=== PATIENT | female | born 1935 ===

== ENCOUNTER 2016-05-18 18:20 | Emergency (ER) | payer OTHER ==
[2016-05-18] MEDS ORDERED: ONDANSETRON 4 MG ODT TAB ONE (18:39)
[2016-05-18] MEDS ORDERED: OXYCODONE/ACETAMINOPHEN 5/325 MG TABLET ONE (18:39)
[2016-05-18] MEDS ORDERED: FENTANYL 100 MCG/2 ML VIAL ONE (19:36)
--- NOTE | 2016-05-18 19:44 | RAD ---
SHOULDER-LEFT 2 OR MORE VIEWS COMPARISON: None HISTORY: Ground-level fall. Left shoulder pain. Initial encounter. FINDINGS: Views: Left shoulder internal rotation, external rotation, and scapular Y Bones: Comminuted angulated fracture proximal diaphysis of the left humerus. Internal rotation of the proximal fragment in relationship to the shoulder joint. 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 Soft tissues: There is a pacemaker generator in the left upper chest wall. IMPRESSION: Comminuted angulated fracture of the proximal diaphysis of the left humerus.
--- NOTE | 2016-05-18 19:45 | RAD ---
HUMERUS LEFT COMPARISON: Left shoulder 3 views, 05/18/2016 HISTORY: Fall with left arm pain. FINDINGS: Views: Left humerus AP and internal rotation. Bones: Comminuted posteriorly healing fracture of the proximal diaphysis of the left humerus. Joints: Degenerative changes at the shoulder and the elbow. Soft tissues: Deformity secondary to fracture. IMPRESSION: 1. Comminuted angulated displaced fracture proximal diaphysis of the left humerus.
== END 2016-05-18 20:32 | disposition home or self-care (01) ==
LOC: ED 18:20
DX: S42.302A Unspecified fracture of shaft of humerus, left arm, initial encounter for closed fracture (principal); W01.198A Fall on same level from slipping, tripping and stumbling with subsequent striking against other object, initial encounter; Y92.9 Unspecified place or not applicable
CPT/HCPCS: 73060; 73030; 99284 ×2; 29105 ×2; 96374; J3010; A9270 ×2